=== PATIENT | female | born 1960 | race Caucasian/White ===

== ENCOUNTER 2023-02-13 08:34 | Emergency (ER) | payer OTHER ==
[2023-02-13 08:43] VITALS: TEMP 97.3
--- NOTE | 2023-02-13 09:05 | ERPHSYRPT ---
- History of Present Illness Time Seen by Provider: 02/13/23 09:04 Source: patient Exam Limitations: no limitations Patient Subjective Stated Complaint: pt here for sob for 2 days now, no fever, no cough, she states it hurts to breath, Triage Nursing Assessment: pt alert, arrived per wc.resp easy, skin w.d.p, has slight edema to lower legs, chest clear, abd soft Physician History: Patient is a 63-year-old female presents to our ED for evaluation of shortness of breath. Symptoms started approximately 2 days ago. Symptoms have been constant. Patient complains of some pain with inspiration. Her right calf has been hurting her which she attributes to exercising. However she currently has no right calf pain. No history of PE DVT. No chest pain at rest. Symptoms are mild to moderate in intensity. Patient denies a history of the same. No associated symptomology otherwise. at bedside. Patient/ voices no other complaints or concerns at this time. Portions of this note were created with voice recognition technology. There may be grammatical, spelling, punctuation or sound alike errors Timing/Duration: day(s) (2 days) Activities at Onset: none Severity of Dyspnea-Max: moderate Severity of Dyspnea-Current: mild Modifying Factors: Improves With: exertion, other Associated Symptoms: denies symptoms Allergies/Adverse Reactions: No Known Drug Allergies Allergy (Verified 02/13/23 08:37) Home Medications: Atorvastatin Calcium [Lipitor] 20 mg PO DAILY 02/13/23 [History] Dulaglutide [Trulicity] 0.75 mg SQ UD 02/13/23 [History] Gabapentin [Neurontin ] 100 mg PO BID 02/13/23 [History] Hydrochlorothiazide 25 mg [hydroDIURIL 25 MG] 12.5 mg PO DAILY 02/13/23 [History] Lisinopril 20 mg [Zestril 20 MG] 1 ea DAILY 02/13/23 [History] Metformin HCl 500 mg [Glucophage 500 MG] 500 mg PO BIDWM 02/13/23 [History] Hx Tetanus, Diphtheria Vaccination/Date Given: No Hx Influenza Vaccination/Date Given: No Hx Pneumococcal Vaccination/Date Given: No Immunizations Up to Date: Yes Travel Risk - International Travel Have you traveled outside of the country in past 3 weeks: No - Coronavirus Screening Are you exhibiting any of the following symptoms?: No Close contact with a COVID-19 positive Pt in past 14-21 Days: No - Vaccine Status Have you recieved a Covid-19 vaccination: Yes Database Dba: Pfizer - Vaccination Dates Date of 2cond Vaccination (if applicable): ? - Review of Systems Constitutional: No Symptoms, No Fever, No Chills Eyes: No Symptoms Ears, Nose, & Throat: No Symptoms Respiratory: No Symptoms, No Cough, No Dyspnea Cardiac: No Symptoms, No Chest Pain, No Edema, No Syncope Abdominal/Gastrointestinal: No Symptoms, No Abdominal Pain, No Nausea, No Vomiting, No Diarrhea Genitourinary Symptoms: No Symptoms, No Dysuria Musculoskeletal: No Symptoms, No Back Pain, No Neck Pain Skin: No Symptoms, No Rash Neurological: No Symptoms, No Dizziness, No Focal Weakness, No Sensory Changes Psychological: No Symptoms Endocrine: No Symptoms Hematologic/Lymphatic: No Symptoms Immunological/Allergic: No Symptoms All Other Systems: Reviewed and Negative - Past Medical History Pertinent Past Medical History: No Neurological History: No Pertinent History Cardiac History: High Cholesterol, Hypertension Respiratory History: No Pertinent History Endocrine Medical History: Diabetes Type II, Other Musculoskeletal History: Osteoarthritis Other Medical History: Kidney specialist referral upcoming. - Past Surgical History Past Surgical History: Yes Musculoskeletal: Orthopedic Surgery Female Surgical History: Tubal Ligation Other Surgical History: hip right replaced - Social History Smoking Status: Former smoker Exposure to second hand smoke: No Drug Use: none Patient Lives Alone: No Significant Family History: no pertinent family hx - Nursing Vital Signs Nursing Vital Signs: Initial Vital Signs Temperature 97.3 F 02/13/23 08:41 Pulse Rate 114 H 02/13/23 08:41 Respiratory Rate 20 02/13/23 08:41 Blood Pressure 101/74 02/13/23 08:41 O2 Sat by Pulse Oximetry 94 L 02/13/23 08:41 Pain Scale Pain Intensity 8 - Physical Exam General Appearance: no apparent distress, alert Eye Exam: PERRL/EOMI Ears, Nose, Throat Exam: hearing grossly normal, normal ENT inspection, normal pharynx Neck Exam: normal inspection, supple Respiratory Exam: normal breath sounds, chest tenderness, lungs clear Cardiovascular/Chest Exam: normal heart sounds, regular rate/rhythm Abdominal/Gastrointestinal Exam: soft, No tenderness, No distention, No mass Extremity Exam: non-tender, normal range of motion, normal inspection, no calf tenderness, no pedal edema, No ambrose's sign (Negative Homans' sign bilaterally.) Peripheral Pulses Exam: dorsalis-pedis (R): 2+, dorsalis-pedis (L): 2+ Neurologic Exam: alert, oriented x 3, cooperative, building wrecker II-XII nml as tested, sensation nml, No motor deficits Skin Exam: normal color, warm, No dry Lymphatic Exam: No adenopathy SpO2 Interpretation: normal SpO2: 94 O2 Delivery: Room Air - Course Nursing assessment & vital signs reviewed: Yes EKG Interpreted by Me: RATE (110), Sinus Rhythm, NORMAL AXIS, NORMAL INTERVALS - CT Exams Chest CT Interpretation: Tele-radiologist Report (Bilateral pulmonary emboli with propagation, left lung nodule, coronary artery disease, fatty liver) Ordered Tests: Active Orders 24 hr Category Date Time Status Avionics Technician STAT Care 02/13/23 08:59 Completed EKG-ER Only STAT Care 02/13/23 08:59 Completed IV Insertion STAT Care 02/13/23 08:59 Completed Pulse Oximetry (ED) STAT Care 02/13/23 08:59 Completed CHEST WITH CONTRAST [CT] Stat Exams 02/13/23 10:09 Completed CBC W DIFF Stat Lab 02/13/23 09:00 Completed CMP Stat Lab 02/13/23 09:00 Completed D-DIMER QUANTITATIVE Stat Lab 02/13/23 09:00 Completed PROTIME WITH INR Stat Lab 02/13/23 09:30 Completed PTT Q4H Lab 02/13/23 15:30 Ordered PTT Q4H Lab 02/13/23 19:30 Ordered PTT Q4H Lab 02/13/23 23:30 Ordered PTT Stat Lab 02/13/23 09:30 Completed TROPONIN Q4H Lab 02/13/23 09:00 Completed Medication Summary Discontinued Medications Generic Name Dose Route Start Last Admin Trade Name Freq PRN Reason Stop Dose Admin Heparin Sodium (Beef Lung) 5,000 unit 02/13/23 11:30 02/13/23 11:45 Heparin 5000 Units/0.5 Ml 5,000 Unit/0.5 Ml Syr IV 02/13/23 11:31 5,000 unit STAT STA Administration Heparin Sodium (Beef Lung) Confirm 02/13/23 11:40 Heparin 5000 Units/0.5 Ml 5,000 Unit/0.5 Ml Syr Administered 02/13/23 11:41 Dose 5,000 unit .ROUTE .STK-MED ONE Heparin Sodium/Dextrose 25,000 units in 250 mls @ 17.146 mls/hr 02/13/23 11:30 02/13/23 11:46 Heparin 25,000 Units/D5w: Use Order Set Gera IV 03/15/23 11:29 12 units/kg/hr .[id number] BARBIE 17.146 mls/hr Administration Protocol 12 UNITS/KG/HR Heparin Sodium/Dextrose Confirm 02/13/23 11:41 Heparin 25,000 Units/D5w: Use Order Set Gera Administered 02/13/23 11:42 Dose 25,000 units in 250 mls @ ud IV .STK-MED ONE Morphine Sulfate 2 mg 02/13/23 11:55 02/13/23 12:17 Morphine Sulfate 2 Mg/Ml Inj IV 02/13/23 11:56 2 mg STAT ONE Administration Morphine Sulfate Confirm 02/13/23 12:14 Morphine Sulfate 2 Mg/Ml Inj Administered 02/13/23 12:15 Dose 2 mg .ROUTE .STK-MED ONE Lab/Rad Data: Laboratory Result Diagrams 02/13/23 09:00 02/13/23 09:00 Laboratory Results 02/13/23 02/13/23 02/13/23 Range/Units 09:30 09:00 09:00 WBC (4.0-10.5) x10^3/uL RBC (4.1-5.4) x10^6/uL Hgb (12.0-16.0) g/dL Hct (35-47) % MCV (78-100) fL MCH (26-32) pg MCHC (32-36) g/dL RDW (11.5-14.0) % Plt Count (150-450) x10^3/uL MPV (7.5-11.0) fL Gran % (36.0-66.0) % Immature Gran % (Auto) (0.00-0.4) % Nucleat RBC Rel Count (0.00-0.1) % Eos # (Auto) (0-0.5) x10^3/uL Immature Gran # (Auto) (0.00-0.03) x10^3u/L Absolute Lymphs (auto) (1.0-4.6) x10^3/uL Absolute Monos (auto) (0.0-1.3) x10^3/uL Absolute Nucleated RBC (0.00-0.01) x10^3u/L Lymphocytes % (24.0-44.0) % Monocytes % (0.0-12.0) % Eosinophils % (0.00-5.0) % Basophils % (0.0-0.4) % Absolute Granulocytes (1.4-6.9) x10^3/uL Basophils # (0-0.4) x10^3/uL PT 10.7 (9.4-12.5) SECONDS INR 0.98 (0.8-3.0) APTT 25.4 (25.1-36.5) SECONDS D-Dimer 7.76 H* (0.0-0.50) mg/L Sodium (137-145) mmol/L Potassium (3.5-5.1) mmol/L Chloride (98-107) mmol/L Carbon Dioxide (22-30) mmol/L Anion Gap (5-15) MEQ/L BUN (7-17) mg/dL Creatinine (0.52-1.04) mg/dL Estimated GFR ML/MIN Glucose (74-106) mg/dL Calcium (8.4-10.2) mg/dL Total Bilirubin (0.2-1.3) mg/dL AST (14-36) U/L ALT (0-35) U/L Alkaline Phosphatase (38-126) U/L Troponin I 0.139 H* (0.000-0.034) ng/mL Serum Total Protein (6.3-8.2) g/dL Albumin (3.5-5.0) g/dL 02/13/23 02/13/23 Range/Units 09:00 09:00 WBC 11.1 H (4.0-10.5) x10^3/uL RBC 4.12 (4.1-5.4) x10^6/uL Hgb 12.6 (12.0-16.0) g/dL Hct 38.5 (35-47) % MCV 93.4 (78-100) fL MCH 30.6 (26-32) pg MCHC 32.7 (32-36) g/dL RDW 13.5 (11.5-14.0) % Plt Count 309 (150-450) x10^3/uL MPV 9.5 (7.5-11.0) fL Gran % 80.6 H (36.0-66.0) % Immature Gran % (Auto) 0.4 (0.00-0.4) % Nucleat RBC Rel Count 0.0 (0.00-0.1) % Eos # (Auto) 0.09 (0-0.5) x10^3/uL Immature Gran # (Auto) 0.04 H (0.00-0.03) x10^3u/L Absolute Lymphs (auto) 1.35 (1.0-4.6) x10^3/uL Absolute Monos (auto) 0.60 (0.0-1.3) x10^3/uL Absolute Nucleated RBC 0.00 (0.00-0.01) x10^3u/L Lymphocytes % 12.2 L (24.0-44.0) % Monocytes % 5.4 (0.0-12.0) % Eosinophils % 0.8 (0.00-5.0) % Basophils % 0.6 (0.0-0.4) % Absolute Granulocytes 8.93 H (1.4-6.9) x10^3/uL Basophils # 0.07 (0-0.4) x10^3/uL PT (9.4-12.5) SECONDS INR (0.8-3.0) APTT (25.1-36.5) SECONDS D-Dimer (0.0-0.50) mg/L Sodium 140 (137-145) mmol/L Potassium 4.3 (3.5-5.1) mmol/L Chloride 106 (98-107) mmol/L Carbon Dioxide 24 (22-30) mmol/L Anion Gap 14.3 (5-15) MEQ/L BUN 21 H (7-17) mg/dL Creatinine 1.37 H (0.52-1.04) mg/dL Estimated GFR 41.3 ML/MIN Glucose 149 H (74-106) mg/dL Calcium 9.2 (8.4-10.2) mg/dL Total Bilirubin 0.60 (0.2-1.3) mg/dL AST 24 (14-36) U/L ALT 23 (0-35) U/L Alkaline Phosphatase 111 (38-126) U/L Troponin I (0.000-0.034) ng/mL Serum Total Protein 7.1 (6.3-8.2) g/dL Albumin 4.2 (3.5-5.0) g/dL - Progress Progress: improved Air Movement: good Progress Note: Case discussed with interventionalists at [facility] who accepts transfer for a thrombectomy. Patient was accepted at 12:15 PM. 02/13/23 12:15 Patient is a 63-year-old female presents to our ED with a 2-day history of shortness of breath and pleuritic chest pain. Symptoms are progressive. Patient was hypoxic in our ED. Tachycardia observed on the delicatessen manager. D- dimer positive. CTA chest reveals bilateral submassive PE. Elevated troponin observed on cardiac work-up. Patient has elevated creatinine as well. Heparin drip initiated. Patient observed. Vital stable. Patient will require higher level of care possibly thrombectomy versus EKOS procedure. We called [facility] and [facility]. Both were not able to accommodate the patient. EKOS procedure/availability thrombectomy procedure not available. Complexity of problem addressed is moderate acute complicated Critical care time 3 hours. Immediate intervention required to prevent further deterioration. Patient has large bilateral pulmonary emboli causing hypoxia elevated troponin and right heart strain. Anticoagulation initiated. Patient require transfer to higher level of care Complex of data reviewed and analyzed is extensive. Test ordered. Test reviewed and analyzed. clinical correlation made between findings and history physical examination. Patient had pleuritic chest pain. Shortness of breath. We are suspicious for PE in light of the fact that patient mentioned that she had pain in her right calf prior to the onset of her symptoms. D-dimer elevated. CTA chest confirmed suspicion. Bilateral PE observed on CT scan. Right heart strain evidenced by elevated troponin. Case and management discussed with Dr. hanson interventionalists at [facility] who accepts transfer. Risk of complication and a risk morbidity/mortality of patient management is high. Patient on a heparin drip. Patient requires hospitalization and transfer to higher level of care. Plan of care established for shared decision making. Patient stable at this point. Time spent to transfer patient is approximately 15 to 20 minutes. Portions of this note were created with voice recognition technology. There may be grammatical, spelling, punctuation or sound alike errors 02/13/23 12:27 Blood Culture(s) Obtained: No Antibiotics given: No Counseled pt/family regarding: lab results, diagnosis, rad results - Departure Departure Disposition: Transfer Clinical Impression: Shortness of breath, Tachycardia, Submassive pulmonary embolus, Right heart strain, Elevated troponin, Elevated serum creatinine, Coronary artery calcification, Noncalcified lung nodule left, Fatty liver, Pleurisy Condition: Stable Critical Care Time: Yes Critical Care Time(excluding separately billable procedures): Critical 165-194 mins Referrals: TIN MERIDA MD [Primary Care Provider] - Follow up/PCP as directed
[2023-02-13 09:14] LABS: Absolute Neutrophil Ct (ANC) 8.93 x10^3/uL (1.4-6.9); BASOPHIL % 0.6 % (0.0-0.4); Basophil (Absolute #) 0.07 x10^3/uL (0-0.4); Eosinophil % 0.8 % (0.00-5.0); Eosinophil (Absolute #) 0.09 x10^3/uL (0-0.5); Hematocrit 38.5 % (35-47); Hemoglobin 12.6 g/dL (12.0-16.0); IMMATURE GRAN # 0.04 x10^3u/L (0.00-0.03); IMMATURE GRAN % 0.4 % (0.00-0.4); Lymphocyte (Absolute #) 1.35 x10^3/uL (1.0-4.6); Lymphocytes % 12.2 % (24.0-44.0); Mean Cell Volume 93.4 fL (78-100); Mean Corpuscular Hemoglobin 30.6 pg (26-32); Mean Corpuscular Hgb Concent. 32.7 g/dL (32-36); Mean Platelet Volume 9.5 fL (7.5-11.0); Monocytes % 5.4 % (0.0-12.0); Neutrophil % 80.6 % (36.0-66.0); Platelet Count 309 x10^3/uL (150-450); Red Blood Count 4.12 x10^6/uL (4.1-5.4); Red Cell Distribution Width 13.5 % (11.5-14.0); White Blood Count 11.1 x10^3/uL (4.0-10.5)
[2023-02-13 09:59] LABS: ALBUMIN 4.2 g/dL (3.5-5.0); ANION GAP 14.3 MEQ/L (5-15); BILIRUBIN,TOTAL 0.6 mg/dL (0.2-1.3); Calcium 9.2 mg/dL (8.4-10.2); Creatinine 1 1.37 mg/dL (0.52-1.04); EST GLOMERULAR FILTRATION RATE 41.3 ML/MIN; Potassium 4.3 mmol/L (3.5-5.1); Total Protein 7.1 g/dL (6.3-8.2)
--- NOTE | 2023-02-13 11:28 | XRAY ---
Indication: Chest pain and short of breath. Pulmonary embolus. Multiple contiguous axial images obtained through the chest using 80 cc Isovue 370 contrast and PE protocol. Comparison: None Good opacification of the pulmonary arteries. Nonoccluding pulmonary emboli seen in the distal left and right main pulmonary arteries. This further extends into all the lobar and lesser degree segmental branches bilaterally. Heart not enlarged with incidental scattered coronary calcifications and prominent epicardiac fat. Aorta is normal in course and caliber. No pathologic mediastinal/hilar lymphadenopathy. Lungs demonstrate minimal dependent atelectasis and minimal left base subsegmental atelectasis/scarring. Posterior left lower lobe demonstrates 6 mm noncalcified nodule. No infiltrate, effusion, or pneumothorax. Bony thorax intact with minimal degenerative changes throughout the spine. Limited upper abdomen demonstrate diffuse fatty liver Impression: 1. Diffuse bilateral nonoccluding pulmonary emboli. 2. Indeterminant 6 mm left lower lobe noncalcified nodule. Outside comparison studies recommended if available. If not, consider follow-up per Fleischner guidelines. 3. Incidental atelectasis/scarring, degenerative spondylosis, and fatty liver. Comment: Telephone report was given to Dr. Kessler in the ER at 1120 hrs. on February 13, 2023.
[2023-02-13] MEDS ORDERED: Heparin 25,000 units/D5W: USE ORDER SET PROTO 25,000 UNITS/250 ML BAG IV SCH (11:30)
[2023-02-13] MEDS ORDERED: HEPARIN 5000 UNITS/0.5 ML (HIGH RISK MED) IV STA (11:30)
[2023-02-13] MEDS ORDERED: HEPARIN 5000 UNITS/0.5 ML (HIGH RISK MED) ONE (11:40)
[2023-02-13] MEDS ORDERED: Heparin 25,000 units/D5W: USE ORDER SET PROTO 25,000 UNITS/250 ML BAG IV ONE (11:41)
[2023-02-13 11:49] LABS: INR 0.98 (0.8-3.0); PROTIME 10.7 SECONDS (9.4-12.5); PTT 25.4 SECONDS (25.1-36.5)
[2023-02-13] MEDS ORDERED: MORPHINE SULFATE 2 MG INJ IV ONE (11:55)
[2023-02-13 11:56] VITALS: O2SAT 94
[2023-02-13] MEDS ORDERED: MORPHINE SULFATE 2 MG INJ ONE (12:14)
[2023-02-13 13:21] VITALS: BP 114/87; PULSE 102; RESP 20
== END 2023-02-13 13:06 | disposition short-term general hospital (02) ==
LOC: ED 08:34
DX: I26.99 Other pulmonary embolism without acute cor pulmonale (principal); R77.8 Other specified abnormalities of plasma proteins; R06.02 Shortness of breath; R00.0 Tachycardia, unspecified; I11.9 Hypertensive heart disease without heart failure; R79.89 Other specified abnormal findings of blood chemistry; I25.10 Atherosclerotic heart disease of native coronary artery without angina pectoris; R91.1 Solitary pulmonary nodule; K76.0 Fatty (change of) liver, not elsewhere classified; R09.1 Pleurisy; E78.5 Hyperlipidemia, unspecified; Z79.84 Long term (current) use of oral hypoglycemic drugs; Z79.85 Long-term (current) use of injectable non-insulin antidiabetic drugs; Z79.899 Other long term (current) drug therapy
CPT/HCPCS: 36000; 36415; 71260; 80053; 84484; 85025; 85379; 85610; 85730; 93005; 93041; 94760; 96365; 96366; 96374; 96375; 99285; J1644; J2270